=== PATIENT | male | born 1940 | race Caucasian/White ===

== ENCOUNTER 2017-07-09 18:05 | Emergency (ER) | payer SELFPAY ==
[~2017-07-09] VITALS: Ht 188 cm; Wt 92.1 kg
[2017-07-09 19:23] LABS: RED CELL DISTRIBUTION WIDTH 13.1 % (11.5-14.5)
[2017-07-09 19:45] LABS: BASOPHIL % 0.2 % (0-2); PLATELET COUNT 212 x10^3mcL (130-400)
[2017-07-09 19:57] LABS: ALKALINE PHOSPHATASE 93 U/L (46-116); ALT/SGPT 14 U/L (16-63); AST/SGOT 21 U/L (15-37); BILIRUBIN TOTAL 0.91 mg/dL (0.20-1.00); CALCIUM 8.8 mg/dL (8.5-10.1); CARBON DIOXIDE 29.7 mmol/L (21-32); CHLORIDE SERUM 96 mmol/L (98-107); CREATININE SERUM 1.3 mg/dL (0.7-1.3); GLUCOSE SERUM 144 mg/dL (74-106); SODIUM SERUM 134 mmol/L (136-145)
[2017-07-09 20:01] LABS: ALBUMIN 3.3 g/dL (3.4-5.0); TOTAL PROTEIN, SERUM 8.3 g/dL (6.4-8.2)
[2017-07-09 20:04] LABS: UA SPECIFIC GRAVITY <=1.005 (1.005-1.035); microscopic required? YES; urine erythrocyte 2+ (NEGATIVE)
[2017-07-09] MEDS ORDERED: METOPROLOL SUC100 M2 PO (21:11)
[2017-07-09] MEDS ORDERED: TYLENOL PO (21:12)
[2017-07-09] MEDS ORDERED: [UNRECOGNIZED DRUG - CODE] PO (21:14)
[2017-07-09] MEDS ORDERED: METFORMIN HCL850 MG PO (21:14)
[2017-07-09 22:13] LABS: MAGNESIUM 1.2 mg/dL (1.8-2.4); PHOSPHOROUS 2.9 mg/dL (2.5-4.9)
[2017-07-09 22:22] LABS: T3 TOTAL 0.84 ng/mL
[2017-07-09 22:27] LABS: FREE T4 1.36 ng/dL (0.76-1.46); FREE THYROXINE INDEX 3.5 ug/dL (1.4-4.5); T4(THYROXINE) 9.1 ug/dL (4.7-13.3)
[2017-07-10 05:34] LABS: BASOPHIL % 0.1 % (0-2); PLATELET COUNT 203 x10^3mcL (130-400); RED CELL DISTRIBUTION WIDTH 13.2 % (11.5-14.5)
[2017-07-10 05:47] LABS: CALCIUM 8.4 mg/dL (8.5-10.1); CARBON DIOXIDE 26.7 mmol/L (21-32); CHLORIDE SERUM 103 mmol/L (98-107); CREATININE SERUM 1.3 mg/dL (0.7-1.3); GLUCOSE SERUM 339 mg/dL (74-106); MAGNESIUM 1.6 mg/dL (1.8-2.4); PHOSPHOROUS 3.2 mg/dL (2.5-4.9); POTASSIUM SERUM 4.3 mmol/L (3.5-5.1); SODIUM SERUM 139 mmol/L (136-145)
[2017-07-10 08:45] VITALS: BP 136/76
[2017-07-10 16:56] VITALS: BP 139/87
== END 2017-07-10 16:56 | disposition home or self-care (01) ==
LOC: ED 18:05
PROVIDERS: Emergency Medicine; Family Medicine
DX: S09.90XA Unspecified injury of head, initial encounter (principal); S16.1XXA Strain of muscle, fascia and tendon at neck level, initial encounter; J18.9 Pneumonia, unspecified organism; R55 Syncope and collapse; I10 Essential (primary) hypertension; E11.9 Type 2 diabetes mellitus without complications; E78.5 Hyperlipidemia, unspecified; E87.6 Hypokalemia; D64.9 Anemia, unspecified; R09.02 Hypoxemia; J98.01 Acute bronchospasm; W22.8XXA Striking against or struck by other objects, initial encounter; Y93.89 Activity, other specified; Y92.89 Other specified places as the place of occurrence of the external cause; Y99.8 Other external cause status; Z79.84 Long term (current) use of oral hypoglycemic drugs
CPT/HCPCS: 82962; 83880; 84439; 87804; J1815; J1956; J2930; J3475; J3480; J7030; J7613; J7620; J7644; Q0092